=== PATIENT | female | born 1955 | race Caucasian/White ===

== ENCOUNTER 2016-12-27 12:32 | Emergency (ER) | payer OTHER ==
[2016-12-27 13:01] LABS: BASOPHILS 0.2 %; BASOPHILS ABSOLUTE 0.02 10/3/uL (0.0-0.16); EOSINOPHILS 2.2 %; EOSINOPHILS ABSOLUTE 0.19 10/3/uL (0.0-0.53); HEMATOCRIT 40.5 % (36.0-48.0); HEMOGLOBIN 13.7 g/dL (12.0-16.0); IMMATURE GRANULOCYTES 0.3 %; IMMATURE GRANULOCYTES ABSOLUTE 0.03 10/3/uL (0.0-0.11); LYMPHOCYTES 29.5 %; LYMPHOCYTES ABSOLUTE 2.56 10/3/uL (0.67-4.30); MEAN CORPUS HGB CONC 33.8 g/dL (32.0-36.0); MEAN CORPUSCULAR HEMOGLOB 32.4 pg (26.0-34.0); MEAN CORPUSCULAR VOLUME 95.7 fL (80-100); MEAN PLATELET VOLUME 10.6 fL (9.2-13.0); MONOCYTES 7.7 %; MONOCYTES ABSOLUTE 0.67 10/3/uL (0.21-1.20); NEUTROPHILS 60.1 %; PLATELET COUNT 272 10/3/uL (150-400); RBC DISTRIBUTION WIDTH 13.6 % (12.0-16.0); RED CELL COUNT 4.23 10/6/uL (4.0-5.6); WHITE BLOOD CELLS 8.7 10/3/uL (4.5-10.5)
[2016-12-27 13:02] LABS: MANUAL DIFF NO %
[2016-12-27 13:11] LABS: INTERNATIONAL NORMAL RATI 1.1 UNITS (-); PARTIAL THROMBO TIME 25.1 SEC (22.5-37.2); PROTIME (NOT ORD) 13.7 SEC (12.0-14.5)
[2016-12-27 13:16] LABS: BUN (BLOOD UREA NITROGEN) 10 MG/DL (6-23); CALCIUM, SERUM 8.9 MG/DL (8.5-10.4); CHEST PAIN PROFILE TAT 0 Hrs 19 Mins; CHLORIDE, SERUM 105 MMOL/L (96-112); CO2 (CARBON DIOXIDE) 25 MMOL/L (24-34); CREATININE 0.78 MG/DL (0.55-1.02); GFR AFRICAN AMERICAN 96 ML/MIN (>=60); GFR NON AFRICAN AMERICAN 83 ML/MIN (>=60); GLUCOSE, SERUM 94 MG/DL (60-99); SODIUM, SERUM 137 MMOL/L (135-148); TROPONIN I <0.02 NG/ML (<0.05)
[2016-12-27 13:18] LABS: POTASSIUM, SERUM 4.4 MMOL/L (3.5-5.3)
[2016-12-27 16:13] LABS: ALBUMIN 3.6 G/DL (3.5-5.0); ALKALINE PHOSPHATASE 78 U/L (45-117); SGPT(ALT) 30 U/L (5-65); TOTAL BILIRUBIN 0.6 MG/DL (0-1.2); TOTAL PROTEIN 7.5 G/DL (6.0-8.5)
[2016-12-27 16:14] LABS: DIRECT BILIRUBIN < 0.1 MG/DL (0.0-0.4); INDIRECT BILIRUBIN(NOT ORDER) 0.5 MG/DL (0.1-0.9); SGOT(AST) 36 U/L (5-40)
[2017-01-31] MEDS ORDERED: VITAMIN B-122500 MCG SL (17:00)
[2017-01-31] MEDS ORDERED: D 5000 PO (17:00)
[2017-01-31] MEDS ORDERED: NEXIUM20 M1 PO (17:01)
== END 2016-12-27 19:47 | disposition home or self-care (01) ==
LOC: ER 12:32
PROVIDERS: Hospitalist
DX: R07.9 Chest pain, unspecified (principal); K82.8 Other specified diseases of gallbladder; Z88.2 Allergy status to sulfonamides
CPT/HCPCS: 71020; 71275; 74174; 80048; 80076; 83690; 83735; 84484; 85025; 85610; 85730; 93005; 99285; A9270-GY; J2405; Q9967

== ENCOUNTER 2017-02-07 07:59 | Day surgery (SDC) | payer OTHER ==
[2017-02-03 10:30] LABS: BASOPHILS 0.2 %; BASOPHILS ABSOLUTE 0.02 10/3/uL (0.0-0.16); EOSINOPHILS 3.5 %; EOSINOPHILS ABSOLUTE 0.31 10/3/uL (0.0-0.53); HEMATOCRIT 41.7 % (36.0-48.0); HEMOGLOBIN 13.7 g/dL (12.0-16.0); IMMATURE GRANULOCYTES 0.4 %; IMMATURE GRANULOCYTES ABSOLUTE 0.04 10/3/uL (0.0-0.11); LYMPHOCYTES ABSOLUTE 2.51 10/3/uL (0.67-4.30); MEAN CORPUS HGB CONC 32.9 g/dL (32.0-36.0); MEAN CORPUSCULAR HEMOGLOB 31.7 pg (26.0-34.0); MEAN CORPUSCULAR VOLUME 96.5 fL (80-100); MEAN PLATELET VOLUME 11.1 fL (9.2-13.0); MONOCYTES 6.5 %; MONOCYTES ABSOLUTE 0.58 10/3/uL (0.21-1.20); NEUTROPHILS 61.4 %; PLATELET COUNT 240 10/3/uL (150-400); RBC DISTRIBUTION WIDTH 13.5 % (12.0-16.0); RED CELL COUNT 4.32 10/6/uL (4.0-5.6)
[2017-02-03 10:31] LABS: MANUAL DIFF NO %
[2017-02-03 10:45] LABS: BUN (BLOOD UREA NITROGEN) 10 MG/DL (6-23); CALCIUM, SERUM 8.4 MG/DL (8.5-10.4); CHLORIDE, SERUM 108 MMOL/L (96-112); CO2 (CARBON DIOXIDE) 28 MMOL/L (24-34); CREATININE 0.72 MG/DL (0.55-1.02); GFR AFRICAN AMERICAN 106 ML/MIN (>=60); GFR NON AFRICAN AMERICAN 92 ML/MIN (>=60); GLUCOSE, SERUM 102 MG/DL (60-99); POTASSIUM, SERUM 4.3 MMOL/L (3.5-5.3); SODIUM, SERUM 142 MMOL/L (135-148)
[2017-02-03 17:00] LABS: A/G RATIO 1.2 (0.7-1.9); ALBUMIN 3.7 G/DL (3.5-5.0); ALKALINE PHOSPHATASE 73 U/L (45-117); GLOBULIN 3.2 G/DL (2.5-4.1); SGOT(AST) 25 U/L (5-40); SGPT(ALT) 25 U/L (5-65); TOTAL BILIRUBIN 0.3 MG/DL (0-1.2); TOTAL PROTEIN 6.9 G/DL (6.0-8.5)
--- NOTE | ~2017-02-07 | OP ---
Record Of Operation [facility] [address] [place]. [address] NAME: MAYRA LARIOS : 59 [place] [facility] [place] [id number] AGE: 61 ADM/REG DATE : 02/07/17 MR#: [id number] REPORT SERV DATE: 02/07/17 DICTATED BY: KHANH CABRERA DATE: 02/07/17 REPORT STATUS : Draft TRANSCRIBED BY: MODL DATE: 02/07/17 DATE OF PROCEDURE: 02/07/2017 PREOPERATIVE DIAGNOSIS: Porcelain gallbladder. POSTOPERATIVE DIAGNOSIS: Porcelain gallbladder. OPERATION PERFORMED: Laparoscopic cholecystectomy. SURGEON: Khanh Cabrera M.D. ANESTHESIA: General. ESTIMATED BLOOD LOSS: Less than 10 mL. IV FLUIDS: Adequate. INDICATION FOR PROCEDURE: Ms Larios is a 61-year-old white female, who had a CT which showed a porcelain gallbladder. She has had some mild right upper quadrant pain, but has not had any for several months. She is being brought to the operating room today for laparoscopic cholecystectomy. Full risks and benefits of the procedure were discussed in detail. DESCRIPTION OF OPERATION: After appropriate sedation, the patient was prepped and draped in proper sterile fashion. Skin and subcutaneous tissues around the umbilicus were infiltrated with local anesthesia. A vertical incision was made at the umbilical skin. She had small umbilical hernia, which was opened up slightly, and a 10-mm trocar was placed in the abdomen. The abdomen was insufflated to 15 mmHg. We placed a 10-mm subxiphoid and two right lateral 5 mm trocars under direct visualization after obtaining local anesthesia in standard fashion. Gallbladder was visualized and noted to have some dense adhesions to it. It was difficult to grasp. It was grasped and taken cephalad. We incised the peritoneum on both sides of the gallbladder to help with mobilization. We dissected out the cystic artery and the cystic duct as well as posterior of the gallbladder, we were therefore able to demonstrate critical view of safety. The cystic artery and duct were ligated between the hemoclips, and the gallbladder was removed from the gallbladder fossa using hook cautery, and brought out through the umbilical trocar site. We replaced the trocar and visualized the right upper quadrant. No evidence of bleeding or bile leak. We visualized our clips, which were intact. We instilled 20 mL of Marcaine over the right lobe of the liver. Trocars were removed under direct visualization. There was no evidence of bleeding from the abdominal wall. The abdomen was then desufflated. Fascia at the umbilical trocar site was then closed using 0 Vicryl suture. The skin was closed using interrupted running 4-0 Monocryl suture. Steri-Strips and dressings were then placed. The patient was taken to the recovery room in satisfactory condition. Record Of Operation [address] [address] NAME: MAYRA LARIOS : 59 [place] [facility] [place] [id number] AGE: 61 ADM/REG DATE : 02/07/17 MR#: [id number] REPORT SERV DATE: 02/07/17 DICTATED BY: KHANH CABRERA DATE: 02/07/17 REPORT STATUS : Draft TRANSCRIBED BY: SERAFIN DATE: 02/07/17 MANDO/SERAFIN Khanh Cabrera M.D. / [id number] CC: Allen Felix M.D.
[~2017-02-07 07:59] MED LIST: D 5000 PO; NEXIUM20 M1 PO; VITAMIN B-122500 MCG SL
== END 2017-02-07 14:12 | disposition home or self-care (01) ==
LOC: SDC 07:59
PROVIDERS: Specialist
PROC: 0FT44ZZ Resection of Gallbladder, Percutaneous Endoscopic Approach (ICD-10-PCS; principal; 2017-02-07 09:15)
DX: K80.10 Calculus of gallbladder with chronic cholecystitis without obstruction (principal); K21.9 Gastro-esophageal reflux disease without esophagitis; Z88.2 Allergy status to sulfonamides; Z98.890 Other specified postprocedural states
CPT/HCPCS: 80053; 85025; 88304; 93005; A9270-GY; J0690; J1170; J2250; J2405; J2710; J3010; Q9967